=== PATIENT | female | born 1965 | race Caucasian/White ===

== ENCOUNTER 2017-09-06 13:59 | Inpatient (IN) | payer OTHER ==
[~2017-09-06] VITALS: Ht 170.2 cm; Wt 73.9 kg
[2017-09-06] VITALS (9 sets, daily range): BP systolic 100–143; BP diastolic 59–92; PULSE 78–110; RESP 16–20; TEMP 98.7–99.5; O2SAT 95–99
--- NOTE | 2017-09-06 14:18 | PD ---
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 Pain is crampy, sharp, 8 out of 10, not associated with any fever, nausea, vomiting, diarrhea, back pain, chest pain, headache, neck pain. Denies any known drug allergies No primary care physician Past medical history significant for depression only on medication Patient denies any abdominal surgeries. PFSH Past Medical History ?: Not Social History Tobacco Use: No Allergies-Medications (Allergen,Severity, Reaction): Coded Allergies: No Known Allergies (Unverified , 09/06/17) Reported Meds & Prescriptions Reported Meds & Active Scripts Active Reported Easy Fiber (Dextrin) 3 Gram/3.5 Gram Powder Unknown Dose Dextroamphetamine (Dextroamphetamine Sulfate) 5 Mg Cap Unknown Dose PO BID Prozac (Fluoxetine HCl) 10 Mg Cap Unknown Dose PO DAILY Review of Systems General / Constitutional: No: Fever Eyes: No: Visual changes HENT: No: Headaches Cardiovascular: No: Chest Pain or Discomfort Respiratory: No: Shortness of Breath Gastrointestinal: Positive: Nausea, Abdominal Pain Genitourinary: No: Dysuria Musculoskeletal: No: Pain Skin: No Rash Neurologic: No: Weakness Psychiatric: No: Depression Endocrine: No: Polydipsia Hematologic/Lymphatic: No: Easy Bruising Physical Exam Narrative GENERAL: SKIN: Warm and dry. HEAD: Atraumatic. Normocephalic. EYES: Pupils equal and round. No scleral icterus. No injection or drainage. ENT: No nasal bleeding or discharge. Mucous membranes pink and moist. NECK: Trachea midline. No JVD. CARDIOVASCULAR: Regular rate and rhythm. RESPIRATORY: No accessory muscle use. Clear to auscultation. Breath sounds equal bilaterally. GASTROINTESTINAL: Abdomen soft, non-tender, nondistended. MUSCULOSKELETAL: Extremities without clubbing, cyanosis, or edema. No obvious deformities. NEUROLOGICAL: Awake and alert. No obvious cranial nerve deficits. Motor grossly within normal limits. Five out of 5 muscle strength in the arms and legs. Normal speech. PSYCHIATRIC: Appropriate mood and affect; insight and judgment normal. Data Data Last Documented VS Vital Signs Date Time Temp Pulse Resp B/P (MAP) Pulse Ox O2 Delivery O2 Flow Rate FiO2 09/06/17 15:14 78 16 100/63 (75) 97 Room Air 09/06/17 14:10 99.5 Orders Orders Complete Blood Count With Diff (09/06/17 14:24) Comprehensive Metabolic Panel (09/06/17 14:24) Lipase (09/06/17 14:24) Urinalysis - C+S If Indicated (09/06/17 14:24) Us Abdomen Gallbladder (09/06/17 ) Iv Access Insert/Monitor (09/06/17 14:24) Ecg Monitoring (09/06/17 14:24) Oximetry (09/06/17 14:24) NPO (09/06/17 14:24) Morphine Inj (Morphine Inj) (09/06/17 14:30) Ondansetron Inj (Zofran Inj) (09/06/17 14:30) Sodium Chlor 0.9% 1000 Ml Inj (Ns 1000 M (09/06/17 14:24) Sodium Chloride 0.9% Flush (Ns Flush) (09/06/17 14:30) Electrocardiogram (09/06/17 14:24) Ed Urine Pregnancytest Poc (09/06/17 14:24) Urine Culture (09/06/17 14:30) Metronidazole 500 Mg Inj (Flagyl 500 Mg (09/06/17 15:30) Piperacil-Tazo 3.375 Gm Premix (Zosyn 3. (09/06/17 15:30) Labs Laboratory Tests Test 09/06/17 14:30 09/06/17 14:35 Urine Collection Type VOIDED Urine Color YELLOW Urine Turbidity CLOUDY Urine pH 5.5 Urine Specific [place] GREATER/EQUAL 1.030 Urine Protein 100 mg/dL Urine Glucose (UA) NEG mg/dL Urine Ketones 15 mg/dL Urine Occult Blood TRACE Urine Nitrite POS Urine Bilirubin MOD Urine Urobilinogen 1.0 MG/DL Urine Leukocyte Esterase NEG Urine WBC 0-2 /hpf Urine Squamous Epithelial Cells >8 /hpf Urine Calcium Oxalate Crystals MOD /hpf Urine Bacteria FEW /hpf Microscopic Urinalysis Comment CULTURE INDICATED White Blood Count 13.1 TH/MM3 Red Blood Count 4.50 MIL/MM3 Hemoglobin 13.4 GM/DL Hematocrit 39.9 % Mean Corpuscular Volume 88.8 FL Mean Corpuscular Hemoglobin 29.7 PG Mean Corpuscular Hemoglobin Concent 33.4 % Red Cell Distribution Width 13.1 % Platelet Count 279 TH/MM3 Mean Platelet Volume 8.5 FL Neutrophils (%) (Auto) 80.8 % Lymphocytes (%) (Auto) 9.6 % Monocytes (%) (Auto) 7.6 % Eosinophils (%) (Auto) 0.3 % Basophils (%) (Auto) 1.7 % Neutrophils # (Auto) 10.6 TH/MM3 Lymphocytes # (Auto) 1.3 TH/MM3 Monocytes # (Auto) 1.0 TH/MM3 Eosinophils # (Auto) 0.0 TH/MM3 Basophils # (Auto) 0.2 TH/MM3 CBC Comment DIFF FINAL Differential Comment Blood Urea Nitrogen 15 MG/DL Creatinine 0.97 MG/DL Random Glucose 124 MG/DL Total Protein 8.1 GM/DL Albumin 3.3 GM/DL Calcium Level 9.2 MG/DL Alkaline Phosphatase 149 U/L Aspartate Amino Transf (AST/SGOT) 27 U/L Alanine Aminotransferase (ALT/SGPT) 34 U/L Total Bilirubin 1.0 MG/DL Sodium Level 134 MEQ/L Potassium Level 3.2 MEQ/L Chloride Level 102 MEQ/L Carbon Dioxide Level 24.8 MEQ/L Anion Gap 7 MEQ/L Estimat Glomerular Filtration Rate 61 ML/MIN Lipase 95 U/L MDM Medical Decision Making Medical Screen Exam Complete: Yes Emergency Medical Condition: Yes Medical Record Reviewed: Yes Interpretation(s) EKG shows a normal sinus rhythm, 75 bpm, incomplete right bundle branch block pattern, normal intervals, no evidence of any ST elevation NC pattern. Differential Diagnosis Hepatitis versus cholelithiasis versus cholecystitis versus pancreatitis Narrative Course CBC shows 13,000 leukocytosis, with 81% neutrophilia, no anemia, and normal platelet count. chemistry shows normal electrolytes except for mild hypokalemia of 3.2, normal kidney function normal liver function normal pancreatic function. Ultrasound of the right upper quadrant read by radiologist as prominent gallbladder with some free fluid present around the gallbladder, there are no gallstones. Acalculous cholecystitis would be a consideration. Diagnosis Primary Impression: Acute acalculous cholecystitis Additional Impression: UTI Admitting Information Admitting Physician Requests: Observation Eliot Garcia MD Sep 06, 2017 14:18
[2017-09-06] MEDS ORDERED: TOPI25 PO (14:22)
[2017-09-06] MEDS ORDERED: DEXT5CAP3 PO (14:22)
[2017-09-06] MEDS ORDERED: BUPR100CR PO (14:22)
[2017-09-06] MEDS ORDERED: DEXT155P (14:22)
[2017-09-06] MEDS ORDERED: FLUO-1 PO (14:22)
[2017-09-06] MEDS ORDERED: SODIUM CHLOR 0.9% 1000 ML INJ 1,000 ML IV SCH ×2 (14:24→16:00)
[2017-09-06] MEDS ORDERED: ONDANSETRON HCL 4 MG/2 ML VIAL IVP ONE (14:30)
[2017-09-06] MEDS ORDERED: MORPHINE SULFATE 4 MG/ML INJ IV PUSH ONE (14:30)
[2017-09-06] MEDS ORDERED: SODIUM CHLORIDE 0.9% FLUSH 10 ML FLUSH IV FLUSH PRN ×2 (14:30→16:00)
[2017-09-06 14:43] LABS: AUTOMATED NEUTROPHIL # 10.6 TH/MM3 (1.8-7.7); BASOPHIL # 0.2 TH/MM3 (0-0.2); BASOPHIL % 1.7 % (0.0-2.0); EOSINOPHIL % 0.3 % (0.0-4.0); HEMATOCRIT 39.9 % (35.0-46.0); HEMOGLOBIN 13.4 GM/DL (11.6-15.3); LYMPH % 9.6 % (9.0-44.0); LYMPHOCYTE # 1.3 TH/MM3 (1.0-4.8); MEAN CELL VOLUME 88.8 FL (80.0-100.0); MEAN CORPUSCULAR HEMOGLOBIN 29.7 PG (27.0-34.0); MEAN CORPUSCULAR HGB CONC 33.4 % (32.0-36.0); MEAN PLATELET VOLUME 8.5 FL (7.0-11.0); MONO % 7.6 % (0.0-8.0); NEUT % 80.8 % (16.0-70.0); PLATELET COUNT 279 TH/MM3 (150-450); RED CELL DISTRIBUTION WIDTH 13.1 % (11.6-17.2); WHITE BLOOD COUNT 13.1 TH/MM3 (4.0-11.0)
[2017-09-06 14:50] LABS: CHLORIDE 102 MEQ/L (98-107); SODIUM (NA) 134 MEQ/L (136-145)
[2017-09-06 14:54] LABS: ALBUMIN 3.3 GM/DL (3.4-5.0); BICARBONATE 24.8 MEQ/L (21.0-32.0); CALCIUM 9.2 MG/DL (8.5-10.1); GLUCOSE,RANDOM 124 MG/DL (74-106)
[2017-09-06 14:55] LABS: BLOOD UREA NITROGEN 15 MG/DL (7-18)
[2017-09-06 14:57] LABS: ALT (GPT) 34 U/L (10-53); AST (GOT) 27 U/L (15-37); CREATININE 0.97 MG/DL (0.50-1.00); GLOMERULAR FILTRATION RATE 61 ML/MIN (>89)
[2017-09-06 14:59] LABS: TOTAL PROTEIN 8.1 GM/DL (6.4-8.2)
[2017-09-06 15:00] LABS: ALKALINE PHOSPHATASE 149 U/L (45-117)
[2017-09-06 15:10] LABS: BILIRUBIN, URINE MOD (NEG); BLOOD, URINE TRACE (NEG); GLUCOSE,URINE NEG (NEG); KETONE, URINE 15 mg/dL (NEG); NITRITE,URINE POS (NEG); PH, URINE 5.5 (5.0-8.5); URINE COLOR YELLOW (YELLW/STRAW); URINE LEUKOCYTE ESTERASE NEG (NEG)
--- NOTE | 2017-09-06 15:13 | RADRPT ---
EXAM DATE/TIME: 09/06/2017 14:46 [facility] COMPARISON: No previous studies available for comparison. INDICATIONS : Right upper quadrant pain, back pain, nausea. MEDICAL HISTORY : Depression. SURGICAL HISTORY : Breast augmentation. Tonsillectomy. ENCOUNTER: Initial ACUITY: 3 days PAIN SCORE: 7/10 LOCATION: Right upper quadrant MEASUREMENTS: LIVER: 17.6 cm length COMMON DUCT: 7 mm RIGHT KIDNEY: 11.0 x 5.3 x 4.9 cm FINDINGS: LIVER: Liver is enlarged and somewhat isodense. There is no duct dilatation. COMMON DUCT: No intraluminal mass or stone visualized. GALLBLADDER: Gallbladder is prominent without stones. There is minimal free fluid around the gallbladder. There is some tenderness in the region of the gallbladder. PANCREAS: The visualized portions are within normal limits. RIGHT KIDNEY: No evidence of hydronephrosis, stone, or mass. CONCLUSION: Prominent Gallbladder some free fluid present around the gallbladder. There are no gallstones. Acalculus cholecystitis would be a consideration. CT scan of the abdomen with IV contrast may be of benefit Uri Mcneill MD FACR on September 06, 2017 at 15:08 Board Certified Radiologist. This report was verified electronically.
[2017-09-06 15:16] LABS: BACTERIA, URINE FEW /hpf; CALCIUM OXALATE CRYSTALS,URINE MOD /hpf; SQUAMOUS EPITHELIAL CELL URINE >8 /hpf (0-5); WBC, URINE 0-2 /hpf (0-5)
[2017-09-06] MEDS ORDERED: metroNIDAZOLE 500 MG INJ 100 ML IV ONE (15:30)
[2017-09-06] MEDS ORDERED: PIPERACIL-TAZO 3.375 GM PREMIX 50 ML IV ONE (15:30)
[2017-09-06] MEDS ORDERED: diphenhydrAMINE HCL 50 MG/ML VIAL IVP ONE (16:00)
[2017-09-06] MEDS ORDERED: DOCUSATE SODIUM 100 MG CAP PO PRN (16:00)
[2017-09-06] MEDS ORDERED: ONDANSETRON HCL 4 MG/2 ML VIAL IV PUSH PRN (16:00)
[2017-09-06] MEDS ORDERED: diphenhydrAMINE HCL 25 MG CAP PO PRN (16:00)
[2017-09-06] MEDS ORDERED: LEVOFLOXACIN 500 MG PREMIX INJ 100 ML IV ONE (16:00)
[2017-09-06] MEDS ORDERED: TEMAZEPAM 15 MG CAP PO PRN (16:00)
[2017-09-06] MEDS ORDERED: EPINEPHrine HCL (1:1000) 1 MG/ML VIAL IM ONE (16:00)
[2017-09-06] MEDS ORDERED: FAMOTIDINE 20 MG/2 ML VIAL IV PUSH ONE (16:00)
[2017-09-06] MEDS ORDERED: methylPREDNISolone SOD SUCC 125 MG/2 ML VIAL IV PUSH ONE (16:00)
[2017-09-06] MEDS ORDERED: MAGNESIUM HYDROXIDE SUSP 30 ML CUP PO PRN (16:00)
[2017-09-06] MEDS ORDERED: ACETAMINOPHEN 325 MG TAB PO PRN (16:00)
[2017-09-06] MEDS: metroNIDAZOLE 500 MG INJ 100 ML IV SCH (18:00)
[2017-09-06] MEDS: SODIUM CHLOR 0.9% 1000 ML INJ 1,000 ML IV SCH (19:20)
[2017-09-06] MEDS: SODIUM CHLORIDE 0.9% FLUSH 10 ML FLUSH IV FLUSH SCH (21:00)
[2017-09-06] MEDS: ACETAMINOPHEN/HYDROcodone 325 MG/5 MG TAB PO PRN (21:31)
[2017-09-06] MEDS ORDERED: PIPERACIL-TAZO 4.5 GM PREMIX 100 ML IV SCH (22:00)
[2017-09-07] VITALS: BP 127/76; PULSE 68; RESP 20; TEMP 96.1; O2SAT 96
[2017-09-07] MEDS: SODIUM CHLOR 0.9% 1000 ML INJ 1,000 ML IV SCH ×3 (01:55→20:45)
[2017-09-07] MEDS: metroNIDAZOLE 500 MG INJ 100 ML IV SCH ×3 (02:53→16:14)
[2017-09-07] MEDS ORDERED: IOHEXOL 350 MG/ML 10 ML VIAL (for RAD DIAG) IVCONTRAST ONE (03:19)
--- NOTE | 2017-09-07 03:35 | RADRPT ---
EXAM DATE/TIME: 09/07/2017 02:43 [facility] COMPARISON: No previous studies available for comparison. INDICATIONS : Right upper quadrant pain. IV CONTRAST: 100 cc Omnipaque 350 (iohexol) IV ORAL CONTRAST: No oral contrast ingested. RADIATION DOSE: 8.91 CTDIvol (mGy) MEDICAL HISTORY : None SURGICAL HISTORY : Erick lord. ENCOUNTER: Initial ACUITY: 4 - 6 days PAIN SCALE: 4/10 LOCATION: Right upper quadrant TECHNIQUE: Volumetric scanning of the abdomen and pelvis was performed. Using automated exposure control and ad justment of the mA and/or kV according to patient size, radiation dose was kept as low as reasonably achievable to obtain optimal diagnostic quality images. DICOM format image data is available electro nically for review and comparison. FINDINGS: LOWER LUNGS: The visualized lower lungs are clear. LIVER: Homogeneous density without lesion. There is no dilation of the biliary tree. No calcified gallston es, but the gallbladder is markedly distended measuring in excess of 8 cm in oblique dimension. Ther e is lacy induration of the fat anterior and lateral to the gallbladder and there is focal opacity in the space between the hepatic flexure and gallbladder. No drainable fluid collection seen. Some in duration does track along the right paracolic region.. SPLEEN: Normal size without lesion. PANCREAS: Within normal limits. KIDNEYS: Normal in size and shape. There is no mass, stone or hydronephrosis. ADRENAL GLANDS: Within normal limits. VASCULAR: There is no aortic aneurysm. BOWEL/MESENTERY: The stomach, small bowel, and colon demonstrate no acute abnormality. There is no free intraperitone al air or fluid. ABDOMINAL WALL: Within normal limits. RETROPERITONEUM: There is no lymphadenopathy. BLADDER: No wall thickening or mass. REPRODUCTIVE: Anteverted uterus. No free fluid in the dependent pelvis measuring 1.9 cm. Low density areas in the left adnexa. INGUINAL: There is no lymphadenopathy or hernia. MUSCULOSKELETAL: Within normal limits for patient age. CONCLUSION: 1. Abnormally distended gallbladder with surrounding inflammatory opacities in the surrounding fat. There is also induration tracking along the right paracolic region. No calcified gallstones. No dil ation of the intra-or extrahepatic biliary system. Findings suggest acalculus cholecystitis. 2. Mild amount of free fluid in the dependent pelvis. De Fritz MD on September 07, 2017 at 3:29 Board Certified Radiologist. This report was verified electronically.
[2017-09-07 06:51] LABS: AUTOMATED NEUTROPHIL # 11.3 TH/MM3 (1.8-7.7); BASOPHIL % 0.2 % (0.0-2.0); HEMATOCRIT 37.2 % (35.0-46.0); HEMOGLOBIN 12.7 GM/DL (11.6-15.3); LYMPH % 4.5 % (9.0-44.0); LYMPHOCYTE # 0.6 TH/MM3 (1.0-4.8); MEAN CELL VOLUME 89.9 FL (80.0-100.0); MEAN CORPUSCULAR HEMOGLOBIN 30.7 PG (27.0-34.0); MEAN CORPUSCULAR HGB CONC 34.2 % (32.0-36.0); MEAN PLATELET VOLUME 9.1 FL (7.0-11.0); MONO % 2.5 % (0.0-8.0); MONOCYTE # 0.3 TH/MM3 (0-0.9); NEUT % 92.8 % (16.0-70.0); PLATELET COUNT 265 TH/MM3 (150-450); RED BLOOD COUNT 4.14 MIL/MM3 (4.00-5.30); RED CELL DISTRIBUTION WIDTH 13.8 % (11.6-17.2); WHITE BLOOD COUNT 12.2 TH/MM3 (4.0-11.0)
[2017-09-07 07:02] LABS: CHLORIDE 106 MEQ/L (98-107); SODIUM (NA) 138 MEQ/L (136-145)
[2017-09-07 07:06] LABS: ALBUMIN 3.2 GM/DL (3.4-5.0); BICARBONATE 23.1 MEQ/L (21.0-32.0); BLOOD UREA NITROGEN 12 MG/DL (7-18); CALCIUM 8.9 MG/DL (8.5-10.1); GLUCOSE,RANDOM 121 MG/DL (74-106)
[2017-09-07 07:09] LABS: ALT (GPT) 33 U/L (10-53); AST (GOT) 21 U/L (15-37); CREATININE 0.81 MG/DL (0.50-1.00); GLOMERULAR FILTRATION RATE 75 ML/MIN (>89)
[2017-09-07 07:11] LABS: TOTAL BILIRUBIN ADULT 0.7 MG/DL (0.2-1.0); TOTAL PROTEIN 7.8 GM/DL (6.4-8.2)
[2017-09-07 07:12] LABS: ALKALINE PHOSPHATASE 148 U/L (45-117)
[2017-09-07] MEDS: ACETAMINOPHEN/HYDROcodone 325 MG/5 MG TAB PO PRN ×3 (07:28→23:50)
[2017-09-07] MEDS: CALCIUM CARBONATE 500 MG CHEWABLE TAB CHEW PRN ×2 (07:28→23:51)
[2017-09-07 08:00] VITALS: BP 142/84; PULSE 78; RESP 18; TEMP 96.9; O2SAT 98
[2017-09-07] MEDS ORDERED: PNEUMOCOCCAL POLYVALENT INJ 25 MCG/0.5 ML SYR IM ONE (09:00)
[2017-09-07] MEDS: SODIUM CHLORIDE 0.9% FLUSH 10 ML FLUSH IV FLUSH SCH ×2 (09:00→20:46)
[2017-09-07] MEDS ORDERED: INFLUENZA VIRUS VACCINE (QUADRIVALENT) 0.5 ML SYR IM ONE (09:00)
--- NOTE | 2017-09-07 10:35 | PD.CONS ---
cc: Ezequiel Bolanos MD HPI Service General Surgery Consult Requested By Titi RODRIGUEZ Reason for Consult Acalculous cholecystitis Primary Care Physician No Primary Care Physician History of Present Illness This is a 51 year old female with a past medical history of depression, recent diagnosis of fatty liver due to EDEN and dyslipidemia. The patient reports that she awoke from sleep Wednesday morning at 0300 with a sharp RUQ pain that radiated to her back. She rates it an 8 out of 10. She denies any nausea, vomiting or diarrhea. She thought she was constipated and look some laxatives. She had a bowel movement without any relief of the RUQ pain. She tried over the counter medications including anti acids, laxatives and GasX without any relief of the pain. She decided to come yesterday to the ED for evaluation. An US of the gallbladder was obtained which was concerning for acalculous cholecystitis. A CT abdomen/pelvis was obtained which showed a distended gallbladder without gallstones. She has a mildly elevated WBC. A General Surgery consultation has been requested. Review of Systems Constitutional: DENIES: Fatigue, Weight gain, Chills, Change in appetite Endocrine: DENIES: Polydipsia, Polyuria, Polyphagia Eyes: DENIES: Diplopia, Eye inflammation Ears, nose, mouth, throat: DENIES: Hearing loss Respiratory: DENIES: Cough Cardiovascular: DENIES: Chest pain Gastrointestinal: COMPLAINS OF: Abdominal pain, DENIES: Nausea, Vomiting Genitourinary: DENIES: Urinary frequency Musculoskeletal: DENIES: Joint pain Integumentary: DENIES: Abnormal pigmentation Hematologic/lymphatic: DENIES: Bruising Immunologic/allergic: DENIES: Eczema Neurologic: DENIES: Headache, Localized weakness Psychiatric: DENIES: Mood changes, Depression, Hallucinations Past Family Social History Past Medical History Depression Fatty liver secondary to EDEN Deviated septum Past Surgical History Abdominoplasty Breast reduction Reported Medications Topamax Wellbutrin Prozac Dextroamphetamine Dextrin Allergies: Coded Allergies: piperacillin (Verified Allergy, Unknown, ITCHY THROAT, CONGESTED, DIFFICULTY SWALLOWING, 09/06/17) PER RN IN E.D. tazobactam (Verified Allergy, Unknown, 09/06/17) Active Ordered Medications Current Medications Medications (Trade) Dose Ordered Sig/Charley Route Start Time Stop Time Status Last Admin Sodium Chloride 1,000 ml @ 100 mls/hr Q10H IV 09/06/17 15:55 09/06/17 19:20 (NS Flush) 2 ml UNSCH PRN IV FLUSH 09/06/17 16:00 (NS Flush) 2 ml BID IV FLUSH 09/06/17 21:00 (Zofran Inj) 4 mg Q6H PRN IV PUSH 09/06/17 16:00 (Benadryl) 25 mg Q6H PRN PO 09/06/17 16:00 09/07/17 07:28 (Toradol Inj) 15 mg Q6H PRN IV PUSH 09/06/17 16:00 09/11/17 15:59 (Paia 5-325 Mg) 1 tab Q4H PRN PO 09/06/17 16:00 09/07/17 07:28 (Tylenol) 650 mg Q4H PRN PO 09/06/17 16:00 (Colace) 100 mg BID PRN PO 09/06/17 16:00 (Milk Of Magnesia Liq) 30 ml DAILY PRN PO 09/06/17 16:00 (Tums Chew) 1,000 mg TID PRN CHEW 09/06/17 16:00 09/07/17 07:28 (Restoril) 15 mg HS PRN PO 09/06/17 16:00 Levofloxacin/ Dextrose 100 ml @ 100 mls/hr Q24H IV 09/07/17 17:00 Metronidazole 100 ml @ 100 mls/hr Q8H IV 09/06/17 18:00 09/07/17 02:53 Family History Non contributory Social History Denies tobacco use Denies ETOH use Denies illicit drug use She is . Just recently moved her from [place]. Originally from [place] Physical Exam Vital Signs Vital Signs Date Time Temp Pulse Resp B/P (MAP) Pulse Ox O2 Delivery O2 Flow Rate FiO2 09/07/17 08:00 96.9 78 18 142/84 (103) 98 09/07/17 00:00 96.1 68 20 127/76 (93) 96 09/06/17 20:00 98.7 80 20 124/74 (91) 96 09/06/17 20:00 98.7 80 20 124/74 (91) 96 09/06/17 19:59 09/06/17 17:55 86 20 125/73 (90) 98 Nasal Cannula 2.00 09/06/17 16:57 80 20 119/71 (87) 99 Nasal Cannula 2.00 09/06/17 16:13 84 20 103/59 (74) 97 09/06/17 16:06 120 103/59 09/06/17 15:51 95 20 117/78 (91) 95 09/06/17 15:14 78 16 100/63 (75) 97 Room Air 09/06/17 14:35 96 09/06/17 14:10 99.5 110 18 143/92 (109) 97 Physical Exam GENERAL: Pleasant 51 year old female resting in bed in no acute distress. SKIN: Warm and dry. HEAD: Atraumatic. Normocephalic. EYES: Pupils equal and round. No scleral icterus. No injection or drainage. ENT: No nasal bleeding or discharge. Mucous membranes pink and moist. NECK: Trachea midline. CARDIOVASCULAR: Regular rate and rhythm. RESPIRATORY: No accessory muscle use. Clear to auscultation. Breath sounds equal bilaterally. GASTROINTESTINAL: Abdomen soft, tenderness in RUQ with palpation. Well healed scar around surgically created umbilicus; well healed low transverse incision. MUSCULOSKELETAL: Extremities without clubbing, cyanosis, or edema. No obvious deformities. NEUROLOGICAL: Awake and alert. No obvious cranial nerve deficits. Motor grossly within normal limits. Five out of 5 muscle strength in the arms and legs. Normal speech. PSYCHIATRIC: Appropriate mood and affect; insight and judgment normal. Laboratory Laboratory Tests Test 09/06/17 14:30 09/06/17 14:35 09/07/17 05:15 Urine Collection Type VOIDED Urine Color YELLOW Urine Turbidity CLOUDY Urine pH 5.5 Urine Specific [place] GREATER/EQUAL 1.030 Urine Protein 100 Urine Glucose (UA) NEG Urine Ketones 15 Urine Occult Blood TRACE Urine Nitrite POS Urine Bilirubin MOD Urine Urobilinogen 1.0 Urine Leukocyte Esterase NEG Urine WBC 0-2 Urine Squamous Epithelial Cells >8 Urine Calcium Oxalate Crystals MOD Urine Bacteria FEW Microscopic Urinalysis Comment CULTURE INDICATED White Blood Count 13.1 12.2 Red Blood Count 4.50 4.14 Hemoglobin 13.4 12.7 Hematocrit 39.9 37.2 Mean Corpuscular Volume 88.8 89.9 Mean Corpuscular Hemoglobin 29.7 30.7 Mean Corpuscular Hemoglobin Concent 33.4 34.2 Red Cell Distribution Width 13.1 13.8 Platelet Count 279 265 Mean Platelet Volume 8.5 9.1 Neutrophils (%) (Auto) 80.8 92.8 Lymphocytes (%) (Auto) 9.6 4.5 Monocytes (%) (Auto) 7.6 2.5 Eosinophils (%) (Auto) 0.3 0.0 Basophils (%) (Auto) 1.7 0.2 Neutrophils # (Auto) 10.6 11.3 Lymphocytes # (Auto) 1.3 0.6 Monocytes # (Auto) 1.0 0.3 Eosinophils # (Auto) 0.0 0.0 Basophils # (Auto) 0.2 0.0 CBC Comment DIFF FINAL DIFF FINAL Differential Comment Blood Urea Nitrogen 15 12 Creatinine 0.97 0.81 Random Glucose 124 121 Total Protein 8.1 7.8 Albumin 3.3 3.2 Calcium Level 9.2 8.9 Alkaline Phosphatase 149 148 Aspartate Amino Transf (AST/SGOT) 27 21 Alanine Aminotransferase (ALT/SGPT) 34 33 Total Bilirubin 1.0 0.7 Sodium Level 134 138 Potassium Level 3.2 3.3 Chloride Level 102 106 Carbon Dioxide Level 24.8 23.1 Anion Gap 7 9 Estimat Glomerular Filtration Rate 61 75 Lipase 95 Date/Time Source Procedure Growth Status 09/06/17 19:00 Blood Peripheral Aerobic Blood Culture Pending Received 09/06/17 19:00 Blood Peripheral Anaerobic Blood Culture Pending Received 09/06/17 14:30 Urine Random Urine Urine Culture Pending Received Imaging Last 48 hours Impressions Gall Bladder Ultrasound 09/06/17 0000 Signed Impressions: Service Date/Time: Wednesday, September 06, 2017 14:46 - CONCLUSION: Prominent Gallbladder some free fluid present around the gallbladder. There are no gallstones. Acalculus cholecystitis would be a consideration. CT scan of the abdomen with IV contrast may be of benefit Uri Mcneill MD FACR Abdomen/Pelvis CT 09/06/17 0000 Signed Impressions: Service Date/Time: Thursday, September 07, 2017 02:43 - CONCLUSION: 1. Abnormally distended gallbladder with surrounding inflammatory opacities in the surrounding fat. There is also induration tracking along the right paracolic region. No calcified gallstones. No dilation of the intra-or extrahepatic biliary system. Findings suggest acalculus cholecystitis. 2. Mild amount of free fluid in the dependent pelvis. De Fritz MD Assessment and Plan Assessment and Plan 51 year old female with RUQ abdominal pain; acalculous cholecystitis -Plan for OR today at [address] Bolanos -NPO -Obtain consents -Thank you for this consult; We will continue to follow Discussed Condition With Dr. Luis Miguel Clayvarick Attending Statement patient seen at bedside ruq pain consistent with acalculus cholecystitis discussed with patient need for surgical intervention she understands and would like to proceed Attestation The exam, history, and the medical decision-making described in the above note were completed with the assistance of the mid-level provider. I reviewed and agree with the findings presented. I attest that I had a [id number] encounter with the patient on the same day, and personally performed and documented my assessment and findings in the medical record. Lashell Sellers/First Elke ELIZABETH Sep 07, 2017 10:35 Ezequiel Bolanos MD Sep 12, 2017 06:28
[2017-09-07] MEDS ORDERED: BUPIVACAINE/EPINEPHRINE 0.25% 50 ML VIAL ONE (11:11)
[2017-09-07] MEDS ORDERED: SUGAMMADEX SODIUM 200 MG/2 ML VIAL IV PUSH ONE (11:15)
[2017-09-07] MEDS ORDERED: CIPROFLOXACIN 400 MG PREMIX 200 ML ONE (11:18)
[2017-09-07] MEDS ORDERED: MIDAZOLAM HCL 2 MG/2 ML VIAL ONE (11:21)
[2017-09-07] MEDS ORDERED: FAMOTIDINE 20 MG/2 ML VIAL ONE (11:21)
[2017-09-07] MEDS ORDERED: LACTATED RINGER'S 1000 ML IV PRN (11:30)
[2017-09-07] MEDS ORDERED: CHLORHEXIDINE GLUCONATE 2 % 1 PACK (2 CLOTHS) TOPICAL PRN (11:30)
[2017-09-07] MEDS ORDERED: METOPROLOL TARTRATE 25 MG TAB PO PRN (11:30)
[2017-09-07] MEDS ORDERED: POVIDONE IODINE 5% (ANTISEPSIS KIT) 4 APPLICATIONS EACH NARE PRN (11:30)
[2017-09-07] MEDS ORDERED: SODIUM CHLORID 0.9% 500 ML IV PRN (11:30)
[2017-09-07] MEDS ORDERED: INSULIN HUMAN REGULAR 1,000 UNITS/10 ML VIAL SQ PRN (11:30)
--- NOTE | 2017-09-07 11:32 | HHI.PR ---
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
[2017-09-07] MEDS ORDERED: METRONIDAZOLE 500 MG/100 ML ISONTONIC SOLN IV SCH (12:00)
[2017-09-07] MEDS ORDERED: CIPROFLOXACIN/DEXT 400 MG/200 ML IV SCH (12:00)
--- NOTE | 2017-09-07 12:50 | HHI.HP ---
[facility] Service [facility] Primary Care Physician No Primary Care Physician Admission Diagnosis ACALCULOUS CHOLECYSTITIS, UTI Diagnoses: Chief Complaint: Abdominal pain Travel History International Travel<30 Days: No Contact w/Intl Traveler <30 Da: No Traveled to Known Affected Are: No History of Present Illness Patient is a 51-year-old female complaining of right upper quadrant pain for 4 days intermittent and 8 out of 10 improved with IV narcotics in the emergency room. She never had this pain before. Patient is found to have signs and symptoms of acute cholecystitis and ultrasound right upper quadrant does show prominent gallbladder. Patient now seen postoperatively status post cholecystectomy. She is awake and complaining of postsurgical discomfort. Review of Systems Constitutional: DENIES: Diaphoretic episodes, Fatigue, Fever, Weight gain, Weight loss, Chills, Dizziness, Change in appetite, Night Sweats Endocrine: DENIES: Abnorml menstrual pattern, Heat/cold intolerance, Polydipsia , Polyuria, Polyphagia Eyes: DENIES: Blurred vision, Diplopia, Eye inflammation, Eye pain, Vision loss , Photosensitivity, Double Vision Ears, nose, mouth, throat: DENIES: Tinnitus, Hearing loss, Vertigo, Nasal discharge, Oral lesions, Throat pain, Hoarseness, Ear Pain, Running Nose, Epistaxis, Sinus Pain, Toothache, Odynophagia Respiratory: DENIES: Apneas, Cough, Snoring, Wheezing, Hemoptysis, Sputum production, Shortness of breath Cardiovascular: DENIES: Chest pain, Palpitations, Syncope, Dyspnea on Exertion , PND, Lower Extremity Edema, Orthopnea, Claudication Gastrointestinal: COMPLAINS OF: Abdominal pain, DENIES: Black stools, Bloody stools, Constipation, Diarrhea, Nausea, Vomiting, Difficulty Swallowing, Anorexia Musculoskeletal: DENIES: Joint pain, Muscle aches, Stiffness, Joint Swelling, Back pain, Neck pain Integumentary: DENIES: Abnormal pigmentation, Pruritus, Rash, Nail changes, Breast masses, Breast skin changes, Nipple discharge Hematologic/lymphatic: DENIES: Bruising, Lymphadenopathy Immunologic/allergic: DENIES: Eczema, Urticaria Neurologic: DENIES: Abnormal gait, Headache, Localized weakness, Paresthesias, Seizures, Speech Problems, Tremor, Poor Balance Psychiatric: DENIES: Anxiety, Confusion, Mood changes, Depression, Hallucinations, Agitation, Suicidal Ideation, Homicidal Ideation, Delusions Except as stated in HPI: all other systems reviewed are Neg Past Family Social History Allergies: Coded Allergies: piperacillin (Verified Allergy, Unknown, ITCHY THROAT, CONGESTED, DIFFICULTY SWALLOWING, 09/06/17) PER RN IN E.D. tazobactam (Verified Allergy, Unknown, 09/06/17) Physical Exam Vital Signs Vital Signs Date Time Temp Pulse Resp B/P (MAP) Pulse Ox O2 Delivery O2 Flow Rate FiO2 09/07/17 11:04 96.2 77 16 142/84 (103) 100 09/07/17 08:28 20 09/07/17 08:00 96.9 78 18 142/84 (103) 98 09/07/17 00:00 96.1 68 20 127/76 (93) 96 09/06/17 20:00 98.7 80 20 124/74 (91) 96 09/06/17 20:00 98.7 80 20 124/74 (91) 96 09/06/17 19:59 09/06/17 17:55 86 20 125/73 (90) 98 Nasal Cannula 2.00 09/06/17 16:57 80 20 119/71 (87) 99 Nasal Cannula 2.00 09/06/17 16:13 84 20 103/59 (74) 97 09/06/17 16:06 120 103/59 09/06/17 15:51 95 20 117/78 (91) 95 09/06/17 15:14 78 16 100/63 (75) 97 Room Air 09/06/17 14:35 96 09/06/17 14:10 99.5 110 18 143/92 (109) 97 Physical Exam GENERAL: This is a well-nourished, well-developed patient, in no apparent distress. SKIN: No rashes, ecchymoses or lesions. Cool and dry. HEAD: Atraumatic. Normocephalic. No temporal or scalp tenderness. EYES: Pupils equal round and reactive. Extraocular motions intact. No scleral icterus. No injection or drainage. ENT: Nose without bleeding, purulent drainage or septal hematoma. Throat without erythema, tonsillar hypertrophy or exudate. Uvula midline. Airway patent. NECK: Trachea midline. No JVD or lymphadenopathy. Supple, nontender, no meningeal signs. CARDIOVASCULAR: Regular rate and rhythm without murmurs, gallops, or rubs. RESPIRATORY: Clear to auscultation. Breath sounds equal bilaterally. No wheezes , rales, or rhonchi. GASTROINTESTINAL: Abdomen soft, abdominal pain right upper quadrant, no hepato- splenomegaly, or palpable masses. No guarding. MUSCULOSKELETAL: Extremities without clubbing, cyanosis, or edema. No joint tenderness, effusion, or edema noted. No calf tenderness. Negative Homans sign bilaterally. NEUROLOGICAL: Awake and alert. Cranial nerves II through XII intact. Motor and sensory grossly within normal limits. Five out of 5 muscle strength in all muscle groups. Normal speech. Laboratory Laboratory Tests Test 09/06/17 14:30 09/06/17 14:35 09/07/17 05:15 Urine Collection Type VOIDED Urine Color YELLOW Urine Turbidity CLOUDY Urine pH 5.5 Urine Specific [place] GREATER/EQUAL 1.030 Urine Protein 100 Urine Glucose (UA) NEG Urine Ketones 15 Urine Occult Blood TRACE Urine Nitrite POS Urine Bilirubin MOD Urine Urobilinogen 1.0 Urine Leukocyte Esterase NEG Urine WBC 0-2 Urine Squamous Epithelial Cells >8 Urine Calcium Oxalate Crystals MOD Urine Bacteria FEW Microscopic Urinalysis Comment CULTURE INDICATED White Blood Count 13.1 12.2 Red Blood Count 4.50 4.14 Hemoglobin 13.4 12.7 Hematocrit 39.9 37.2 Mean Corpuscular Volume 88.8 89.9 Mean Corpuscular Hemoglobin 29.7 30.7 Mean Corpuscular Hemoglobin Concent 33.4 34.2 Red Cell Distribution Width 13.1 13.8 Platelet Count 279 265 Mean Platelet Volume 8.5 9.1 Neutrophils (%) (Auto) 80.8 92.8 Lymphocytes (%) (Auto) 9.6 4.5 Monocytes (%) (Auto) 7.6 2.5 Eosinophils (%) (Auto) 0.3 0.0 Basophils (%) (Auto) 1.7 0.2 Neutrophils # (Auto) 10.6 11.3 Lymphocytes # (Auto) 1.3 0.6 Monocytes # (Auto) 1.0 0.3 Eosinophils # (Auto) 0.0 0.0 Basophils # (Auto) 0.2 0.0 CBC Comment DIFF FINAL DIFF FINAL Differential Comment Blood Urea Nitrogen 15 12 Creatinine 0.97 0.81 Random Glucose 124 121 Total Protein 8.1 7.8 Albumin 3.3 3.2 Calcium Level 9.2 8.9 Alkaline Phosphatase 149 148 Aspartate Amino Transf (AST/SGOT) 27 21 Alanine Aminotransferase (ALT/SGPT) 34 33 Total Bilirubin 1.0 0.7 Sodium Level 134 138 Potassium Level 3.2 3.3 Chloride Level 102 106 Carbon Dioxide Level 24.8 23.1 Anion Gap 7 9 Estimat Glomerular Filtration Rate 61 75 Lipase 95 Date/Time Source Procedure Growth Status 09/06/17 19:00 Blood Peripheral Aerobic Blood Culture - Preliminary NO GROWTH IN 1 DAY Resulted 09/06/17 19:00 Blood Peripheral Anaerobic Blood Culture - Preliminary NO GROWTH IN 1 DAY Resulted 09/06/17 14:30 Urine Random Urine Urine Culture Pending Received Result Diagram: 09/07/17 0515 09/07/17 0515 Imaging Last Impressions Gall Bladder Ultrasound 09/06/17 0000 Signed Impressions: Service Date/Time: Wednesday, September 06, 2017 14:46 - CONCLUSION: Prominent Gallbladder some free fluid present around the gallbladder. There are no gallstones. Acalculus cholecystitis would be a consideration. CT scan of the abdomen with IV contrast may be of benefit Uri Mcneill MD FACR Abdomen/Pelvis CT 09/06/17 0000 Signed Impressions: Service Date/Time: Thursday, September 07, 2017 02:43 - CONCLUSION: 1. Abnormally distended gallbladder with surrounding inflammatory opacities in the surrounding fat. There is also induration tracking along the right paracolic region. No calcified gallstones. No dilation of the intra-or extrahepatic biliary system. Findings suggest acalculus cholecystitis. 2. Mild amount of free fluid in the dependent pelvis. De Fritz MD Assessment and Plan Problem List: (1) Acute acalculous cholecystitis ICD Code: K81.0 - Acute cholecystitis Status: Acute Plan: Status post cholecystectomy Continue IV narcotics as needed for pain General surgery appreciated perioperative abx (2) Depression ICD Code: F32.9 - Major depressive disorder, single episode, unspecified Plan: Patient's home medication doses are not known and she will resume them when she is discharged home Code Status Full code Discussed Condition With likely dc in Marycarmen Rowland MD Sep 07, 2017 12:50
[2017-09-07] MEDS ORDERED: MORPHINE SULFATE 4 MG/ML INJ ONE ×2 (13:26→13:34)
[2017-09-07] MEDS ORDERED: ACETAMINOPHEN 1000 MG/100 ML 100 ML IV ONE (13:28)
[2017-09-07] MEDS ORDERED: HYDROmorphone HCL PF 2 MG/ML VIAL ONE (13:48)
[2017-09-07] MEDS ORDERED: LORazepam 2 MG/ML VIAL ONE (14:13)
[2017-09-07] MEDS ORDERED: DO NOT ADM ANY ANTICOAGULANT DRUGS PRN (15:45)
[2017-09-07] MEDS ORDERED: LORazepam 2 MG/ML VIAL IV PRN (15:45)
[2017-09-07 16:00] VITALS: BP 121/77; PULSE 76; RESP 16; TEMP 96.7; O2SAT 98
--- NOTE | 2017-09-07 16:02 | EKG ---
Date Performed: 09/06/2017 Time Performed: 15:07:57 PTAGE: 51 years EKG: Sinus rhythm INCOMPLETE RIGHT BUNDLE BRANCH BLOCK NONSPECIFIC T-WAVE ABNORMALITY BORDERLINE ECG NO PREVIOUS TRACING DOCTOR: Joradn Navarro Interpretating Date/Time 09/07/2017 16:00:09
[2017-09-07] MEDS: LEVOFLOXACIN 500 MG PREMIX INJ 100 ML IV SCH (16:15)
--- NOTE | 2017-09-07 17:34 | MP ---
cc: Ezequiel Bolanos MD, Lars S MD DATE OF OPERATION: 09/07/2017 PREOPERATIVE DIAGNOSIS: Acalculous cholecystitis. POSTOPERATIVE DIAGNOSIS: Acalculous cholecystitis, necrotic gallbladder. SURGEON: Ezequiel Bolanos MD [employer] MANAGER: See OR sheet. ANESTHESIA: GETA IV FLUIDS: 300 mL ESTIMATED BLOOD LOSS: 30 mL DRAINS: 19-[place] Librado drain COMPLICATIONS: None. WOUND CLASSIFICATION: Contaminated. FINDINGS: Necrotic gallbladder 260 mL of bile aspirated, mildly fatty liver. INDICATIONS: The patient is a 51-year-old female who presents with acute onset of right upper quadrant abdominal pain. She had CT scan and ultrasound showing some pericholecystic fluid, thickening gallbladder wall and concern for acalculous cholecystitis. Decision was made for operative intervention. SPECIMENS: Gallbladder and bile sent to pathology. DETAILS OF PROCEDURE: The patient was taken to the operative suite, placed in supine position. She was prepped and draped in usual sterile fashion after induction of general endotracheal anesthesia. Brief timeout done stating correct patient, procedure, surgical site and all were in agreement with this. Attention was first directed to the umbilicus. A small infraumbilical incision was made with a 15 blade after injection of local anesthetic. Veress needle placed. Intra-abdominal placement was confirmed with saline drop test. The abdomen was insufflated to 15 mm of pneumoperitoneum. The Veress needle was changed to a 5 mm scope and trocar. On cursory inspection, no evidence of injury. Three other ports were placed, including a 12 mm epigastric followed by 2 right subcostal 5 mm. Local anesthetic injected at each port. The patient was placed in reverse Trendelenburg and airplaned to the left. On inspection, the gallbladder was noted to be extremely dilated with areas of necrosis and the gallbladder was extremely inflamed. The gallbladder was decompressed with a needle and 260 mL of bile was obtained. The gallbladder fundus was retracted cephalad. Hook electro Bovie cautery, suction, irrigation and [place] was used to dissect out the cystic duct and cystic artery. These were done, 2 clips placed proximal on the cystic artery and 1 clip distal and also 2 clips were placed proximal and 1 distal on the cystic duct. These were transected with Endo Kusum. There was some bleeding from the liver bed as well. The patient was noted to have again significantly inflamed tissue that was somewhat bleeding and oozing. Hemostasis was obtained, hook electro Bovie cautery was used to remove the gallbladder from the gallbladder fossa. The gallbladder was difficult to remove retrograde. Therefore, completion with dome-down was done in order to fully remove the gallbladder from the gallbladder fossa. Gallbladder was placed in an Endo Catch bag and removed from the epigastric incision. Hemostasis was obtained with electro Bovie cautery. A small piece of Surgicel was also placed in the liver bed for further hemostasis. Suction irrigation done until the effluent was clear. Next, the pneumoperitoneum was removed and a 19-[place] Librado drain was placed in the right upper quadrant and secured with nylon. Ports were removed. The epigastric port was closed with a 0 Vicryl [id number]. Local anesthetic injected. A 4-0 Monocryl was used for subcuticular suture at all incision sites. Sterile dressing was placed. The patient tolerated the procedure well with no intraoperative complications. All lap and instrument counts were correct at the end of the procedure. The patient was extubated and taken stable to PACU. MD TRAN [email or web address] , 03:09 PM , 04:44 PM
[2017-09-07 20:05] VITALS: BP 115/74; PULSE 71; RESP 20; TEMP 97.1; O2SAT 97
[2017-09-07 20:30] VITALS: O2SAT 96
[2017-09-07] MEDS: KETOROLAC TROMETHAMINE 30 MG/ML (IVP) VIAL IV PUSH PRN (20:44)
[2017-09-08] VITALS (7 sets, daily range): BP systolic 113–141; BP diastolic 67–100; PULSE 63–75; RESP 18–20; TEMP 96.2–98.3; O2SAT 94–98
[2017-09-08] MEDS: metroNIDAZOLE 500 MG INJ 100 ML IV SCH ×3 (02:57→18:39)
[2017-09-08] MEDS: KETOROLAC TROMETHAMINE 30 MG/ML (IVP) VIAL IV PUSH PRN (04:33)
[2017-09-08] MEDS: SODIUM CHLOR 0.9% 1000 ML INJ 1,000 ML IV SCH (04:33)
[2017-09-08] MEDS: SODIUM CHLORIDE 0.9% FLUSH 10 ML FLUSH IV FLUSH SCH ×2 (08:38→21:05)
[2017-09-08] MEDS: ACETAMINOPHEN/HYDROcodone 325 MG/5 MG TAB PO PRN (08:43)
[2017-09-08] MEDS ORDERED: ACETAMINOPHEN/HYDROcodone 325 MG/5 MG TAB PO PRN (08:45)
--- NOTE | 2017-09-08 10:02 | HHI.PR ---
Subjective Remarks Patient seen and evaluated today in follow-up for acute cholecystitis status post laparoscopic cholecystectomy. Complaining of abdominal distention and gas pain today. No nausea and patient is tolerating her liquid diet without difficulty She is complaining of some pain Objective Vitals Vital Signs Date Time Temp Pulse Resp B/P (MAP) Pulse Ox O2 Delivery O2 Flow Rate FiO2 09/08/17 07:54 96.3 63 18 141/84 (103) 95 09/08/17 00:00 96.4 75 20 114/67 (83) 95 09/07/17 20:30 96 21 09/07/17 20:05 97.1 71 20 115/74 (88) 97 09/07/17 16:00 96.7 76 16 121/77 (92) 98 09/07/17 15:00 78 16 119/78 (92) 95 Nasal Cannula 3 09/07/17 14:45 80 14 117/69 (85) 97 09/07/17 14:30 77 12 114/72 (86) 97 09/07/17 14:30 16 09/07/17 14:15 74 12 121/68 (85) 91 Nasal Cannula 3 09/07/17 14:00 98 18 140/93 (109) 95 09/07/17 13:45 90 18 127/80 (96) 94 09/07/17 13:30 98.0 94 16 144/77 (99) 100 Room Air 09/07/17 11:04 96.2 77 16 142/84 (103) 100 I/O 09/07/17 09/07/17 09/07/17 09/08/17 09/08/17 09/08/17 07:00 15:00 23:00 07:00 15:00 23:00 Intake Total 1500 ml 920 ml Output Total 30 ml 11 ml 1 ml Balance 1470 ml 909 ml -1 ml Intake Oral 0 ml 420 ml Other 1500 ml 500 ml Output Drainage Total 11 ml 1 ml Estimated Blood Loss 30 ml # Voids 2 2 # Bowel Movements 1 Result Diagram: 09/07/17 0515 09/07/17 0515 Imaging Last Impressions Gall Bladder Ultrasound 09/06/17 0000 Signed Impressions: Service Date/Time: Wednesday, September 06, 2017 14:46 - CONCLUSION: Prominent Gallbladder some free fluid present around the gallbladder. There are no gallstones. Acalculus cholecystitis would be a consideration. CT scan of the abdomen with IV contrast may be of benefit Uri Mcneill MD FACR Abdomen/Pelvis CT 09/06/17 0000 Signed Impressions: Service Date/Time: Thursday, September 07, 2017 02:43 - CONCLUSION: 1. Abnormally distended gallbladder with surrounding inflammatory opacities in the surrounding fat. There is also induration tracking along the right paracolic region. No calcified gallstones. No dilation of the intra-or extrahepatic biliary system. Findings suggest acalculus cholecystitis. 2. Mild amount of free fluid in the dependent pelvis. De Fritz MD Objective Remarks GENERAL: This is a well-nourished, well-developed patient, in no apparent distress. CARDIOVASCULAR: Regular rate and rhythm without murmurs, gallops, or rubs. RESPIRATORY: Clear to auscultation. Breath sounds equal bilaterally. No wheezes , rales, or rhonchi. GASTROINTESTINAL: Abdomen soft, tender and mildly distended, right JOY drain. Normal active bowel sounds MUSCULOSKELETAL: Extremities without clubbing, cyanosis, or edema. NEURO: Alert & Oriented x4 to person, place, time, situation. Moves all ext x4 Procedures Laparoscopic cholecystectomy A/P Problem List: (1) Acute acalculous cholecystitis ICD Code: K81.0 - Acute cholecystitis Status: Acute Plan: Postop day 1 status post cholecystectomy Continue IV narcotics as needed for pain General surgery appreciated Continue IV Levaquin Will add Gas-X (2) Depression ICD Code: F32.9 - Major depressive disorder, single episode, unspecified Plan: Patient's home medication doses are not known and she will resume them when she is discharged home Discharge Planning Discharge when cleared by surgery Drain will likely need to be removed Marycarmen Lackey MD Sep 08, 2017 10:02
--- NOTE | 2017-09-08 11:27 | HHI.PR ---
Subjective Subjective Notes Resting in bed Did not sleep well last night Pain controlled Feels hungry Objective Vitals/I&O Vital Signs Date Time Temp Pulse Resp B/P (MAP) Pulse Ox O2 Delivery O2 Flow Rate FiO2 09/08/17 07:54 96.3 63 18 141/84 (103) 95 09/07/17 20:30 21 09/07/17 15:00 Nasal Cannula 3 Labs Date/Time Source Procedure Growth Status 09/06/17 19:00 Blood Peripheral Aerobic Blood Culture - Preliminary NO GROWTH IN 2 DAYS Resulted 09/06/17 19:00 Blood Peripheral Anaerobic Blood Culture - Preliminary NO GROWTH IN 2 DAYS Resulted 09/06/17 14:30 Urine Random Urine Urine Culture - Final 50-100,000 CFU/ML MIXED GRAM POSITIVE... Complete Radiology Last 48 hours Impressions Gall Bladder Ultrasound 09/06/17 0000 Signed Impressions: Service Date/Time: Wednesday, September 06, 2017 14:46 - CONCLUSION: Prominent Gallbladder some free fluid present around the gallbladder. There are no gallstones. Acalculus cholecystitis would be a consideration. CT scan of the abdomen with IV contrast may be of benefit Uri Mcneill MD FACR Abdomen/Pelvis CT 09/06/17 0000 Signed Impressions: Service Date/Time: Thursday, September 07, 2017 02:43 - CONCLUSION: 1. Abnormally distended gallbladder with surrounding inflammatory opacities in the surrounding fat. There is also induration tracking along the right paracolic region. No calcified gallstones. No dilation of the intra-or extrahepatic biliary system. Findings suggest acalculus cholecystitis. 2. Mild amount of free fluid in the dependent pelvis. De Fritz MD Cardiovascular: Regular Lungs: Clear Abdomen: Other (lap sites c/d/i; HARJEET with dark drainage; non distended; post op tenderness ) Extremities: No edema A/P Assessment and Plan 51 year old female POD1 lap renny; HARJEET placement -Reviewed operative pictures with patient -Advance to full liquids -Continue IV antibiotics -Pain control -OOB and mobilize as tolerated -IS Attending Statement patient seen at bedside feels incisional pain but doing better harjeet serosang keep one more day advance diet slowly Attestation The exam, history, and the medical decision-making described in the above note were completed with the assistance of the mid-level provider. I reviewed and agree with the findings presented. I attest that I had a [id number] encounter with the patient on the same day, and personally performed and documented my assessment and findings in the medical record. Lashell Sellers/First Elke ELIZABETH Sep 08, 2017 11:27 Ezequiel Bolanos MD Sep 12, 2017 06:30
[2017-09-08] MEDS ORDERED: SIMETHICONE 80 MG CHEWABLE TAB CHEW PRN (13:30)
[2017-09-08] MEDS ORDERED: KETOROLAC TROMETHAMINE 60 MG/2 ML (IM) VIAL IM PRN (15:15)
[2017-09-08] MEDS: LEVOFLOXACIN 500 MG PREMIX INJ 100 ML IV SCH (17:26)
[2017-09-08] MEDS: CALCIUM CARBONATE 500 MG CHEWABLE TAB CHEW PRN (21:45)
[2017-09-09] VITALS: BP 126/80; PULSE 68; RESP 20; TEMP 96.8; O2SAT 95
[2017-09-09] MEDS: metroNIDAZOLE 500 MG INJ 100 ML IV SCH (02:29)
[2017-09-09 07:39] VITALS: O2SAT 97
[2017-09-09] MEDS ORDERED: LEVO500T8 PO (07:48)
[2017-09-09] MEDS ORDERED: METR-1 PO (07:48)
[2017-09-09] MEDS ORDERED: metroNIDAZOLE 500 MG TAB PO SCH (08:00)
[2017-09-09] MEDS: SODIUM CHLORIDE 0.9% FLUSH 10 ML FLUSH IV FLUSH SCH (08:33)
[2017-09-09 08:42] VITALS: BP 147/83; PULSE 70; RESP 16; TEMP 98.5; O2SAT 94
[2017-09-09] MEDS ORDERED: LEVOFLOXACIN 500 MG TAB PO SCH (09:00)
--- NOTE | 2017-09-09 10:10 | HHI.DCPOC ---
Discharge Care Plan Diagnosis: (1) Acute acalculous cholecystitis Goals to Promote Your Health * To prevent worsening of your condition and complications * To maintain your health at the optimal level Directions to Meet Your Goals Take your medications as prescribed Follow your dietary instruction Follow activity as directed Keep your appointments as scheduled Take your immunizations and boosters as scheduled If your symptoms worsen call your PCP, if no PCP go to Urgent Care Center or Emergency Room Smoking is Dangerous to Your Health. Avoid second hand smoke Call the 24-hour hour crisis hotline for domestic abuse at Marycarmen Lackey MD Sep 09, 2017 10:10
--- NOTE | 2017-09-09 11:59 | HHI.PR ---
Subjective Remarks Patient seen and evaluated in follow-up for status post cholecystectomy. Abdominal drain has been removed and patient feels much better. Discharge discussed with patient and medical team. Objective Vitals Vital Signs Date Time Temp Pulse Resp B/P (MAP) Pulse Ox O2 Delivery O2 Flow Rate FiO2 09/09/17 08:42 98.5 70 16 147/83 (104) 94 09/09/17 07:39 97 21 09/09/17 00:00 96.8 68 20 126/80 (95) 95 09/08/17 20:50 98 21 09/08/17 20:48 96.2 72 20 135/84 (101) 94 09/08/17 16:00 97.0 65 18 113/71 (85) 97 09/08/17 12:00 98.3 69 18 138/100 (113) 97 I/O 09/08/17 09/08/17 09/08/17 09/09/17 09/09/17 09/09/17 07:00 15:00 23:00 07:00 15:00 23:00 Intake Total 100 ml 100 ml Output Total 1 ml 20 ml Balance -1 ml 100 ml 80 ml IV Total 100 ml 100 ml Output Drainage Total 1 ml 20 ml Result Diagram: 09/07/17 0515 09/07/17 0515 Objective Remarks GENERAL: This is a well-nourished, well-developed patient, in no apparent distress. CARDIOVASCULAR: Regular rate and rhythm without murmurs, gallops, or rubs. RESPIRATORY: Clear to auscultation. Breath sounds equal bilaterally. No wheezes , rales, or rhonchi. GASTROINTESTINAL: Abdomen soft, tender and mildly distended, right JOY drain. Normal active bowel sounds MUSCULOSKELETAL: Extremities without clubbing, cyanosis, or edema. NEURO: Alert & Oriented x4 to person, place, time, situation. Moves all ext x4 Procedures Laparoscopic cholecystectomy A/P Problem List: (1) Acute acalculous cholecystitis ICD Code: K81.0 - Acute cholecystitis Status: Acute Plan: Improved (2) Depression ICD Code: F32.9 - Major depressive disorder, single episode, unspecified Plan: Patient's home medication doses are not known and she will resume them when she is discharged home Discharge Planning Discharge home Activity as per surgical recommendations Marycarmen Guadarrama MD Sep 09, 2017 11:59
--- NOTE | 2017-09-09 14:48 | HHI.PR ---
Subjective Subjective Notes Resting in bed No acute events overnight Objective Vitals/I&O Vital Signs Date Time Temp Pulse Resp B/P (MAP) Pulse Ox O2 Delivery O2 Flow Rate FiO2 09/09/17 08:42 98.5 70 16 147/83 (104) 94 09/09/17 07:39 21 09/07/17 15:00 Nasal Cannula 3 Labs Date/Time Source Procedure Growth Status 09/06/17 19:00 Blood Peripheral Aerobic Blood Culture - Preliminary NO GROWTH IN 3 DAYS Resulted 09/06/17 19:00 Blood Peripheral Anaerobic Blood Culture - Preliminary NO GROWTH IN 3 DAYS Resulted 09/06/17 14:30 Urine Random Urine Urine Culture - Final 50-100,000 CFU/ML MIXED GRAM POSITIVE... Complete Radiology Last 48 hours Impressions Gall Bladder Ultrasound 09/06/17 0000 Signed Impressions: Service Date/Time: Wednesday, September 06, 2017 14:46 - CONCLUSION: Prominent Gallbladder some free fluid present around the gallbladder. There are no gallstones. Acalculus cholecystitis would be a consideration. CT scan of the abdomen with IV contrast may be of benefit Uri Mcneill MD FACR Abdomen/Pelvis CT 09/06/17 0000 Signed Impressions: Service Date/Time: Thursday, September 07, 2017 02:43 - CONCLUSION: 1. Abnormally distended gallbladder with surrounding inflammatory opacities in the surrounding fat. There is also induration tracking along the right paracolic region. No calcified gallstones. No dilation of the intra-or extrahepatic biliary system. Findings suggest acalculus cholecystitis. 2. Mild amount of free fluid in the dependent pelvis. De Fritz MD Cardiovascular: Regular Lungs: Clear Abdomen: Other (lap sites c/d/i; HARJEET with minimal dark drainage ) Extremities: No edema A/P Assessment and Plan 51 year old female POD2 lap renny; HARJEET placement -Advance to regular diet -Transition to PO antibiotics -Pain control -OOB and mobilize as tolerated -IS -DC HARJEET prior to DC -GS clear for DC; rx on chart -Follow up with Dr. Bolanos on September 20 Attending Statement patient seen at bedside doing well harjeet serosang d/c harjeet d/c home today Attestation The exam, history, and the medical decision-making described in the above note were completed with the assistance of the mid-level provider. I reviewed and agree with the findings presented. I attest that I had a [id number] encounter with the patient on the same day, and personally performed and documented my assessment and findings in the medical record. Lashell Sellers/First Elke ELIZABETH Sep 09, 2017 14:48 Ezequiel Bolanos MD Sep 12, 2017 20:30
== END 2017-09-09 11:51 | disposition home or self-care (01) | DRG 419 ==
LOC: PHED 13:59 → EDSEX 13:59 → PHEDA 15:54 → PH3A 19:52
PROVIDERS: ADMIT Hospitalist; ATTEND Hospitalist
PROC: 0FT44ZZ Resection of Gallbladder, Percutaneous Endoscopic Approach (ICD-10-PCS; principal; 2017-09-07 11:26)
DX: K81.2 Acute cholecystitis with chronic cholecystitis (principal); K76.0 Fatty (change of) liver, not elsewhere classified; F32.9 Major depressive disorder, single episode, unspecified; E87.6 Hypokalemia; E78.5 Hyperlipidemia, unspecified; Z88.1 Allergy status to other antibiotic agents
CPT/HCPCS: 74177; 76705; 80053; 81001; 83690; 84703; 85025; 87040; 87086; 88304; 93005; 94150; 96361; 96365; 96375; J0131; J0171; J0744; J1170; J1200; J1885; J1956; J2060; J2250; J2270; J2405; J2543; J2930; J3010; J7030; J7120; Q9967